=== PATIENT | male | born 1965 | race African-American/Black ===

== ENCOUNTER 2018-05-31 09:14 | Inpatient (IN) | payer MEDICARE, MEDICAID ==
[~2018-05-31] VITALS: Ht 180.3 cm; Wt 59.0 kg
[~2018-05-31 09:14] MED LIST: ALBU2.5V13 IH
[2018-05-31] MEDS ORDERED: MORPHINE SULFATE 4 MG/ML CPJ (NOT FOR IM USE) IV STA (09:51)
[2018-05-31] MEDS ORDERED: ONDANSETRON HCL 4MG/2ML INJ IV STA (09:51)
[2018-05-31 10:14] LABS: BASOPHILS % 1.3 % (0.0-2.0); EOSINOPHILS % 3.5 % (0.0-5.0); HEMOGLOBIN. 13.8 g/dL (14.0-18.0); LYMPHOCYTES % 37.8 % (20.0-50.0); MEAN CORPUSCULAR HEMOGLOBIN 28.4 pg (28.0-32.0); MEAN CORPUSCULAR VOLUME 88.1 fL (80.0-94.0); MONOCYTES % 11.3 % (2.0-8.0); NEUTROPHILS % 46.1 % (40.0-76.0); PLATELET 220 x1000/uL (130-400); RED BLOOD CELL COUNT 4.88 mill/uL (4.7-6.1)
[2018-05-31 10:24] LABS: CHLORIDE 108 mEq/L (98-107)
[2018-05-31 10:26] LABS: D-DIMER 1.52 mg/L FEU (<0.50); INR 1.1; PROTHROMBIN TIME 10.9 sec (9.1-11.1)
[2018-05-31] MEDS ORDERED: DOCUSATE SODIUM 100MG CAPSULE PO PRN (12:30)
[2018-05-31] MEDS ORDERED: LORAZEPAM 2MG/ML CPJ IV PRN (12:30)
[2018-05-31] MEDS ORDERED: ONDANSETRON HCL 4MG/2ML INJ IV PRN (12:30)
[2018-05-31] MEDS ORDERED: IPRATROPIUM/ALBUTEROL 0.5-3(2.5)MG/3ML NEB INH PRN (12:30)
[2018-05-31] MEDS ORDERED: HYDROCODONE/ACETAMINOPHEN 5/325MG TABLET PO PRN (12:30)
[2018-05-31] MEDS ORDERED: ENOXAPARIN 40MG/0.4ML SYR SUBCUT SCH (12:30)
[2018-05-31] MEDS ORDERED: CLONIDINE 0.1MG TABLET PO PRN (12:30)
[2018-05-31] MEDS ORDERED: GUAIFENESIN 200MG/10ML SUGAR FREE UDC PO PRN (12:30)
[2018-05-31] MEDS ORDERED: NA PHOS,M-B/NA PHOS,DI-BA ENEMA 118ML PR PRN (12:30)
[2018-05-31] MEDS ORDERED: MAGNESIUM/ALUMINUM HYDROXIDE/SIMETHICONE 30ML UDC PO PRN (12:30)
[2018-05-31] MEDS ORDERED: ACETAMINOPHEN 325MG TABLET PO PRN (12:30)
[2018-05-31] MEDS ORDERED: HYDROMORPHONE HCL/PF 2MG/ML CPJ IV PRN (12:30)
[2018-05-31 17:28] VITALS: BP 106/75
[2018-05-31 18:00] VITALS: BP 106/75
[2018-05-31] MEDS: ENOXAPARIN 40MG/0.4ML SYR SUBCUT SCH (18:08)
[2018-05-31 18:14] LABS: CHLORIDE 109 mEq/L (98-107)
[2018-05-31 20:00] VITALS: BP 99/70
[2018-06-01] VITALS: BP 100/58
[2018-06-01 04:00] VITALS: BP 110/67
[2018-06-01 07:19] LABS: BASOPHILS % 1.2 % (0.0-2.0); EOSINOPHILS % 3.5 % (0.0-5.0); HEMATOCRIT. 41.3 % (42.0-52.0); HEMOGLOBIN. 13.2 g/dL (14.0-18.0); LYMPHOCYTES % 43.6 % (20.0-50.0); MEAN CORPUSCULAR HEMOGLOBIN 28.1 pg (28.0-32.0); MEAN CORPUSCULAR VOLUME 87.7 fL (80.0-94.0); MEAN PLATELET VOLUME 9.9 fl (7.4-10.4); MONOCYTES % 12.2 % (2.0-8.0); NEUTROPHILS % 39.5 % (40.0-76.0); PLATELET 213 x1000/uL (130-400); RED BLOOD CELL COUNT 4.71 mill/uL (4.7-6.1); RED CELL DISTRIBUTION WIDTH 14.7 % (11.6-14.6)
[2018-06-01 08:00] VITALS: BP 105/68
[2018-06-01 08:34] LABS: CHLORIDE 107 mEq/L (98-107)
[2018-06-01 08:45] LABS: HDL CHOLESTEROL 45 mg/dL (40-59); LDL CHOLESTEROL 105 mg/dL (5-100); T4 FREE 0.96 ng/dL (0.76-1.46)
[2018-06-01] MEDS ORDERED: ASPIRIN 81MG EC TABLET PO SCH (09:00)
[2018-06-01] MEDS: ENOXAPARIN 40MG/0.4ML SYR SUBCUT SCH (09:42)
[2018-06-01 12:00] VITALS: BP 110/60
[2018-06-01 12:09] VITALS: BP 105/68
[2018-06-01 16:46] LABS: CLARITY URINE CLEAR (CLEAR); COLOR URINE YELLOW (YELLOW); KETONES URINE NEGATIVE (NEGATIVE); LEUKOCYTE ESTERASE URINE NEGATIVE (NEGATIVE); NITRITE URINE NEGATIVE (NEGATIVE); OCCULT BLOOD URINE NEGATIVE (NEGATIVE); PROTEIN URINE NEGATIVE (NEGATIVE); SPECIFIC GRAVITY URINE 1.005 (1.005-1.030); UROBILINOGEN URINE 0.2 E.U./dL (0.2-1.0)
[2018-06-01 16:59] LABS: *AMPHETAMINES SCREEN URINE NEGATIVE (NEGATIVE); *BARBITURATES SCREEN URINE NEGATIVE (NEGATIVE); *BENZODIAZEPINES SCREEN URINE NEGATIVE (NEGATIVE); *COCAINE SCREEN URINE NEGATIVE (NEGATIVE)
[2018-06-01 17:00] LABS: CANNABINOID URINE SCREEN NEGATIVE (NEGATIVE); METHADONE URINE SCREEN NEGATIVE (NEGATIVE); OPIATES URINE SCREEN NEGATIVE (NEGATIVE); PHENCYCLIDINE URINE SCREEN NEGATIVE (NEGATIVE)
== END 2018-06-01 16:50 | disposition home or self-care (01) | DRG 206 ==
LOC: ER 09:14 → 7WST 11:17 → ENRESERV 14:36
PROVIDERS: ADMIT Internal Medicine; ATTEND Internal Medicine
DX: M94.0 Chondrocostal junction syndrome [Tietze] (principal); E46 Unspecified protein-calorie malnutrition; Z68.1 Body mass index [BMI] 19.9 or less, adult; F32.9 Major depressive disorder, single episode, unspecified; F41.9 Anxiety disorder, unspecified; I10 Essential (primary) hypertension; J45.909 Unspecified asthma, uncomplicated; Z79.899 Other long term (current) drug therapy
CPT/HCPCS: 36415; 71045; 80048; 80061; 80305; 83880; 84439; 84443; 84484; 85379; 93005; 93306; 96374; 96375; 99285; J1650; J2270; J2405

== ENCOUNTER 2022-10-09 14:53 | Inpatient (IN) | payer MEDICARE, MEDICAID ==
[~2022-10-09] VITALS: Ht 170.2 cm; Wt 61.0 kg
[2022-10-09] MEDS ORDERED: NITROGLYCERIN 0.4MG TABLET SL SL PRN (15:15)
[2022-10-09] MEDS ORDERED: ASPIRIN 81MG TABLET PO ONE (15:15)
[2022-10-09 15:43] LABS: BASOPHILS % 0.9 % (0.0-2.0); EOSINOPHILS % 3.2 % (0.0-5.0); HEMATOCRIT. 43.1 % (42.0-52.0); LYMPHOCYTES % 39.8 % (20.0-50.0); MEAN CORPUSCULAR HEMOGLOBIN 28.4 pg (28.0-32.0); MEAN CORPUSCULAR VOLUME 87.2 fL (80.0-94.0); MEAN PLATELET VOLUME 8.7 fl (7.4-10.4); MONOCYTES % 12.4 % (2.0-8.0); NEUTROPHILS % 43.7 % (40.0-76.0); PLATELET 304 x1000/uL (130-400); RED BLOOD CELL COUNT 4.94 mill/uL (4.7-6.1); RED CELL DISTRIBUTION WIDTH 14.2 % (11.6-14.6)
[2022-10-09 15:54] LABS: CHLORIDE 106 mEq/L (98-107)
[2022-10-09] MEDS ORDERED: LORAZEPAM 2MG/ML CPJ IV PRN (20:15)
[2022-10-09] MEDS ORDERED: DOCUSATE SODIUM 100MG CAPSULE PO PRN (20:15)
[2022-10-09] MEDS ORDERED: CLONIDINE 0.1MG TABLET PO PRN (20:15)
[2022-10-09] MEDS ORDERED: IPRATROPIUM/ALBUTEROL 0.5-3(2.5)MG/3ML NEB HHN PRN (20:15)
[2022-10-09] MEDS ORDERED: ACETAMINOPHEN 325MG TABLET PO PRN ×2 (20:15)
[2022-10-09] MEDS ORDERED: DEXTROSE 50% WATER 50ML SYRINGE IV PRN (20:30)
[2022-10-09] MEDS ORDERED: ENOXAPARIN 40MG/0.4ML SYR SUBCUT SCH (21:00)
[2022-10-09] MEDS: BLOOD SUGAR DIAGNOSTIC STRIP TEST SCH (22:30)
[2022-10-09 23:26] VITALS: BP 130/77
[2022-10-09 23:34] VITALS: BP 130/77
[2022-10-10] VITALS: BP 105/62
[2022-10-10 04:00] VITALS: BP 108/67
[2022-10-10 05:31] LABS: EOSINOPHILS % 2.7 % (0.0-5.0); HEMATOCRIT. 40.2 % (42.0-52.0); HEMOGLOBIN. 13.3 g/dL (14.0-18.0); LYMPHOCYTES % 44.8 % (20.0-50.0); MEAN CORPUSCULAR HEMOGLOBIN 28.7 pg (28.0-32.0); MEAN CORPUSCULAR VOLUME 86.9 fL (80.0-94.0); MEAN PLATELET VOLUME 9.2 fl (7.4-10.4); MONOCYTES % 10.9 % (2.0-8.0); NEUTROPHILS % 40.6 % (40.0-76.0); PLATELET 278 x1000/uL (130-400); RED BLOOD CELL COUNT 4.62 mill/uL (4.7-6.1); RED CELL DISTRIBUTION WIDTH 13.8 % (11.6-14.6)
[2022-10-10] MEDS: BLOOD SUGAR DIAGNOSTIC STRIP TEST SCH ×2 (06:07→11:34)
[2022-10-10 06:59] LABS: CHLORIDE 108 mEq/L (98-107)
[2022-10-10 07:14] LABS: HDL CHOLESTEROL 49 mg/dL (40-59); LDL CHOLESTEROL 101 mg/dL (5-100)
[2022-10-10 07:53] VITALS: BP 115/55
[2022-10-10 08:00] VITALS: BP 99/58
[2022-10-10] MEDS ORDERED: FAMOTIDINE 20MG TABLET PO SCH (09:00)
[2022-10-10] MEDS ORDERED: OLANZAPINE 10MG TABLET PO SCH (09:00)
[2022-10-10] MEDS ORDERED: CITALOPRAM HYDROBROMIDE 10MG TABLET PO SCH (09:00)
[2022-10-10 12:00] VITALS: BP 112/79
== END 2022-10-10 13:50 | disposition left against medical advice (07) | DRG 282 ==
LOC: ER 15:26 → 3WST 18:30
PROVIDERS: ADMIT Internal Medicine; ATTEND Internal Medicine
DX: I20.9 Angina pectoris, unspecified (principal); I21.9 Acute myocardial infarction, unspecified; I11.0 Hypertensive heart disease with heart failure; I50.9 Heart failure, unspecified; J44.9 Chronic obstructive pulmonary disease, unspecified; F32.A Depression, unspecified; Z53.29 Procedure and treatment not carried out because of patient's decision for other reasons
CPT/HCPCS: 36415; 71045; 80048; 80053; 80061; 82962; 83036; 83880; 84439; 84443; 84484; 85025; 85379; 93005; 93970; 99285; J1650

== ENCOUNTER 2023-05-18 12:12 | Emergency (ER) | payer MEDICARE, MEDICAID ==
[~2023-05-18] VITALS: Ht 170.2 cm; Wt 55.0 kg
[2023-05-18 12:16] VITALS: BP 115/70; PULSE 50; RESP 18; O2SAT 97
[2023-05-18 13:00] VITALS: TEMP 98
[2023-05-18] MEDS ORDERED: ACETAMINOPHEN 325MG TABLET PO ONE (13:00)
[2023-05-18] MEDS ORDERED: ACET-2708 MT (14:45)
== END 2023-05-18 15:35 | disposition home or self-care (01) ==
LOC: ER 12:12
DX: M25.552 Pain in left hip (principal); J45.909 Unspecified asthma, uncomplicated
CPT/HCPCS: 73502; 99283

== ENCOUNTER 2023-11-29 18:42 | Emergency (ER) | payer MEDICARE, MEDICAID ==
[~2023-11-29] VITALS: Ht 175.3 cm; Wt 68.0 kg
[~2023-11-29 18:42] MED LIST changes: +ACET-2708 MT
[2023-11-29 18:48] VITALS: TEMP 98.5; O2SAT 100
[2023-11-29] MEDS ORDERED: KETOROLAC 30MG/ML VIAL IM ONE (19:30)
[2023-11-29] MEDS ORDERED: NAPR500T7 MT (20:47)
[2023-11-29] MEDS: KETOROLAC 30MG/ML VIAL IM NR (21:50)
[2023-11-29 21:56] VITALS: BP 136/95; PULSE 87; RESP 20
== END 2023-11-29 21:58 | disposition home or self-care (01) ==
LOC: ER 18:42
DX: M25.562 Pain in left knee (principal); J45.909 Unspecified asthma, uncomplicated; F32.A Depression, unspecified
CPT/HCPCS: 99283; 73560; 96372; J1885